=== PATIENT | female | born 1980 | race Two or more races ===

== ENCOUNTER 2024-07-25 13:33 | Emergency (ER) | payer MEDICARE, OTHER ==
[~2024-07-25] VITALS: Ht 165.1 cm; Wt 86.0 kg
[2024-07-25] MEDS: SODIUM CHLORIDE 0.9% 1,000 ML IV ONE (16:15)
--- NOTE | 2024-07-25 17:00 | ED.PDOC ---
GI ASSESSMENT HPI Comments 44 year old female presents to the ED with chief complaint of N/V. Patient reports that she has been experiencing chronic, intermittent nausea and vomiting for the past year with associated fatigue, becoming worse over time. Patient relays that she currently has no PCP due to recently moving to the area. Patient states she is currently on Aspirin. Patient denies any diarrhea, abdominal pain, dizziness, chest pain, SOB, or fever. Chief Complaint: Dizziness Time Seen by MD: 16:57 Reviewed Notes: Nurses Notes, Medications, Allergies Allergies: Coded Allergies: NO KNOWN ALLERGIES (Unverified , 07/25/24) Information Source: Patient Mode of Arrival: Ambulatory Timing: Other (a year) Duration: Intermittent Prehospital treatment: None Quality: None Vomitus: Watery Stool: Normal Severity: Moderate Recent: None Recent Hx of: None Pain Location: None Modifying Factors: Nothing Associated sign and symptoms: Nausea, Vomiting Past Medical History PAST MEDICAL HISTORY: CVA, High Lipids Surgical History: Hysterectomy [employer] History: No Pertinent [employer] History Family History Family History: Reviewed,noncontributory to illness Social History Smoker: Non-Smoker Alcohol: Denies ETOH Use Drugs: Denies Drug Use Lives In: Home Constitutional: reports: fatigue; denies: chills, diaphoresis, fever, malaise, sweats, weakness, others EENTM: denies: blurred vision, double vision, ear bleeding, ear discharge, ear drainage, ear pain, ear ringing, eye pain, eye redness, hearing loss, mouth pain, mouth swelling, nasal discharge, nose bleeding, nose congestion, nose pain, photophobia, tearing, throat pain, throat swelling, voice changes, others Respiratory: denies: cough, hemoptysis, orthopnea, SOB at rest, shortness of breath, SOB with excertion, stridor, wheezing, others Cardiovascular: denies: chest pain, dizzy spells, diaphoresis, Dyspnea on exertion, edema, irregular heart beat, left arm pain, lightheadedness, palpitations, PND, syncope, others Gastrointestinal: reports: nausea, vomiting; denies: abdomen distended, abdominal pain, blood streaked bowels, constipated, diarrhea, dysphagia, difficulty swallowing, hematemesis, melena, poor appetite, poor fluid intake, rectal bleeding, rectal pain, others Genitourinary: denies: abnormal vagina bleeding, burning, dyspareunia, dysuria, flank pain, frequency, hematuria, incontinence, pain, , vagina discharge, urgency, others Neurological: denies: dizziness, fainting, headache, left sided numbness, left sided weakness, numbness, paresthesia, pre-existing deficit, right sided numbness, right sided weakness, seizure, speech problems, tingling, tremors, weakness, others Musculoskeletal: denies: back pain, gout, joint pain, joint swelling, muscle pain, muscle stiffness, neck pain, others Integumetry: denies: bruises, change in color, change in hair/nails, dryness, laceration, lesions, lumps, rash, wounds, others Allergic/Immunocompromised: denies: Difficulty Healing, Frequent Infections, Hives, Itching, others Hematologic/Lymphatic: denies: anemia, blood clots, easy bleeding, easy bruising, swollen glands, others Endocrine: denies: excessive hunger, excessive sweating, excessive thirst, excessive urination, flushing, intolerance to cold, intolerance to heat, unexplained weight gain, unexplained weight loss, others Psychiatric: denies: anxiety, bipolar disorder, depression, hopeless, panic disorder, schizophrenia, sleepless, suicidal, others All Other Systems: Reviewed and Negative Physical Exam General Appearance: Mild Distress, Obese HEENT: Normal ENT Inspection, PERRL/EOMI Neck: Full Range of Motion, Non-Tender, Normal, Normal Inspection Respiratory: Chest Non-Tender, Lungs Clear, No Accessory Muscle Use, No Respiratory Distress, Normal Breath Sounds Cardiovascular: No Edema, No JVD, No Murmur, No Gallop, Normal Peripheral Pulses, Regular Rate/Rhythm Breast Exam: Deferred Gastrointestinal: No Organomegaly, Non Tender, No Pulsatile Mass, Normal Bowel Sounds, Soft Genitalia: Deferred Pelvic: Deferred Rectal: Deferred Extremities: Decreased range of motion, No calf tenderness, Normal capillary refill, Non-tender, No pedal edema, Other (Right hemiparesis from stroke) Musculoskeletal : Apperance: Normal Neurologic: Alert, sr. vendor management associate II-XII nml as Tested, Motor Weakness, Normal Affect, Normal Mood, No Sensory Deficits, Other (Right hemiparesis from stroke) Cerebellar Function: NOT DONE Reflexes: NOT DONE Skin: Dry, Normal Color, Warm Peripheral Pulses: 1+ carotid (R), 1+ carotid (L) Lymphatic: No Adenopathy Was a procedure done? Was a procedure done?: No GI differential Dx Differential Diagnosis: Appendicitis, Bowel Obstruction, Cholecystitis, Cons tipation, Diverticular disease, Esophagitis, Gastritis/PUD, Hernia, Inflammatory BD, Pancreatitis, UTI, Dehydration, Drug toxicity, Electrolyte Imbalance, Hypovolemia, Renal Failure, Ischemic Bowel, Mass, Anemia X-Ray, Labs, Meds, VS Vital Signs Date Time Temp Pulse Resp B/P (MAP) Pulse Ox O2 Delivery O2 Flow Rate FiO2 07/25/24 14:20 97.0 107 20 117/70 (86) 97 97.0 07/25/24 14:20 97.0 107 20 117/70 (86) 97 Lab Test 07/25/24 16:45 Range/Units White Blood Count 5.8 4.4-10.8 10^3/uL Red Blood Count 4.50 4.0-5.20 10^6/uL Hemoglobin 13.2 12.2-16.2 g/dL Hematocrit 39.9 36.0-46.0 % Mean Corpuscular Volume 88.7 80.0-100.0 fL Mean Corpuscular Hemoglobin 29.4 28.0-32.0 pg Mean Corpuscular Hemoglobin Concent 33.2 32.0-36.0 g/dL Red Cell Distribution Width 14.0 11.8-14.3 % Platelet Count 414 140-450 10^3/uL Mean Platelet Volume 7.1 6.9-10.8 fL Neutrophils (%) (Auto) 62.5 37.0-80.0 % Lymphocytes (%) (Auto) 26.3 10.0-50.0 % Monocytes (%) (Auto) 4.4 0.0-12.0 % Eosinophils (%) (Auto) 5.9 0.0-7.0 % Basophils (%) (Auto) 0.9 0.0-2.0 % Neutrophils # (Auto) 3.6 1.6-8.6 10 ^3/uL Lymphocytes # (Auto) 1.5 0.4-5.4 10 ^3/uL Monocytes # (Auto) 0.3 0-1.3 10 ^3/uL Eosinophils # (Auto) 0.3 0-0.8 10 ^3/uL Basophils # (Auto) 0.1 0-0.2 10 ^3/uL Nucleated Red Blood Cells 0.0 % Sodium Level 141 136-145 mmol/L Potassium Level 4.0 3.5-5.1 mmol/L Chloride Level 107 98-107 mmol/L Carbon Dioxide Level 30 20-31 mmol/L Anion Gap 4 L 5-15 Blood Urea Nitrogen 10 9-23 mg/dL Creatinine 0.79 0.550-1.02 mg/dL Glomerular Filtration Rate Calc 94 >90 mL/min BUN/Creatinine Ratio 12.7 10.0-20.0 Serum Glucose 98 74-106 mg/dL Calcium Level 10.1 8.7-10.4 mg/dL Magnesium Level 2.1 1.6-2.6 mg/dL Total Bilirubin 0.3 0.2-1.0 mg/dL Aspartate Amino Transferase (AST) < 8 L 13-40 U/L Alanine Aminotransferase (ALT) 13 7-40 U/L Alkaline Phosphatase 132 H 46-116 U/L Total Protein 7.1 5.7-8.2 g/dL Albumin 4.3 3.2-4.8 g/dL Lipase Pending Beta HCG, Quantitative 4.2 1.5-4.2 mIU/mL X-Ray, Labs, Meds, VS Comment 44-year-old female presents to the emergency department complaining of dizziness nausea vomiting on and off for one year patient with a history of a CVA with rig ht hemiparesis Patient has started the workup but nothing is done yetdr talamantes to follow up Time of 1ST Reevaluation: 17:57 Reevaluation 1ST: Unchanged Patient Education/Counseling: Diagnosis, Treatment Family Education/Counseling: No Family Present Assigned to Dr. DR TALAMANTES Change of Shift?: Yes Departure 1 Departure Time of Disposition: 18:18 Impression: Primary Impression: Nausea and vomiting in adult Additional Impression: Hemiplegia affecting right side in right-dominant patient as late effect of cerebrovascular disease Disposition: 30 STILL A PATIENT Condition: Fair Critical Care Note Critical Care Time?: No Stability Stability form required: No Heart Score Heart Score: Heart Score Response (Comments) Value History N/A 0 EKG N/A 0 Age <45 0 Risk Factors 1 or 2 risk factors 1 Troponin N/A 0 Total 1 I personally scribed for ROBIN PHELAN MD ([email or web address]) on 07/25/24 at 17:00. Electronically submitted by Mely Merino ([email or web address]). ROBIN PHELAN MD Jul 25, 2024 17:00
[2024-07-25 17:03] LABS: Basophils # (auto) 0.1 10 ^3/uL (0-0.2); Basophils % (auto) 0.9 % (0.0-2.0); Eosinophils # (auto) 0.3 10 ^3/uL (0-0.8); Eosinophils % (auto) 5.9 % (0.0-7.0); Hematocrit 39.9 % (36.0-46.0); Hemoglobin 13.2 g/dL (12.2-16.2); Lymphocytes # (auto) 1.5 10 ^3/uL (0.4-5.4); Lymphocytes % (auto) 26.3 % (10.0-50.0); Mean Corpuscular Hemoglobin 29.4 pg (28.0-32.0); Mean Corpuscular Hgb Conc. 33.2 g/dL (32.0-36.0); Mean Corpuscular Volume 88.7 fL (80.0-100.0); Monocytes # (auto) 0.3 10 ^3/uL (0-1.3); Monocytes % (auto) 4.4 % (0.0-12.0); Neutrophils # (auto) 3.6 10 ^3/uL (1.6-8.6); Neutrophils % (auto) 62.5 % (37.0-80.0); Platelet Count (auto) 414 10^3/uL (140-450); White Blood Cell 5.8 10^3/uL (4.4-10.8)
[2024-07-25 17:34] LABS: Alanine Aminotransferase 13 U/L (7-40); Albumin 4.3 g/dL (3.2-4.8); Anion Gap 4 (5-15); BUN/Creatinine Ratio 12.7 (10.0-20.0); Blood Urea Nitrogen 10 mg/dL (9-23); Calcium 10.1 mg/dL (8.7-10.4); Carbon Dioxide 30 mmol/L (20-31); Chloride 107 mmol/L (98-107); Glucose 98 mg/dL (74-106); Magnesium 2.1 mg/dL (1.6-2.6); Sodium 141 mmol/L (136-145)
[2024-07-25 17:35] LABS: Bilirubin, Total 0.3 mg/dL (0.2-1.0); Total Protein 7.1 g/dL (5.7-8.2)
[2024-07-25 17:38] LABS: Alkaline Phosphatase 132 U/L (46-116); Aspartate Aminotransferase < 8 U/L (13-40)
[2024-07-25 17:48] LABS: Lipase 35 U/L (12-53)
[2024-07-25 20:19] VITALS: TEMP 98.1
[2024-07-25 20:44] VITALS: PULSE 88; RESP 16; O2SAT 98
[2024-07-25] MEDS: MAALOX PLUS or MAALOX 30 ML PO ONE ×2 (20:48→21:05)
[2024-07-25] MEDS: PANTOPRAZOLE 40 MG TAB PO ONE ×2 (20:48→21:05)
[2024-07-25] MEDS: DONNATAL 5ml ORAL Elix (BELLADONNA ALK-PHENOBARB) PO ONE ×2 (20:48→21:05)
[2024-07-25] MEDS: SODIUM CHLORIDE 0.9% 1,000 ML IVB ONE (21:06)
[2024-07-25] MEDS: IOHEXOL 300 MG/ML 100ML BOTTLE IJ ONE (21:06)
[2024-07-25] MEDS: METOCLOPRAMIDE HCL 5MG/ml INJ 2ml VIAL IV ONE ×2 (21:06→21:10)
--- NOTE | 2024-07-25 21:39 | DVH ---
CHEST RADIOGRAPH Indication: Persistent abdominal pain with nausea and vomiting Technique: Frontal and lateral view of the chest was obtained Comparison: None FINDINGS: Lines and Tubes: None Lungs: Clear Pleura: No effusion. No pneumothorax. Cardiomediastinal contours: Unremarkable Bones: Unremarkable IMPRESSION: 1. No evidence of acute disease.
--- NOTE | 2024-07-25 22:03 | DVH ---
Exam: CT CT AB PEL WITH IV CON ONLY History: Abdominal pain with nausea and vomiting for the past year Comparison Study: None TECHNIQUE: A digital tree girdler image was obtained. During the uneventful, intravenous administration of c ontrast material, multislice data acquisition was obtained through the abdomen and pelvis. The data s et was subsequently reconstructed into axial images. Images reviewed on a wrist examination is an exa mination of axial and multiplanar reformations using a variety of window levels and settings. RADIATION DOSE: DLP 1219.76 mGy.cm; CTDI vol 21.57 mGy. Findings: Lungs: The lung bases are clear. Heart: The visualized heart is unremarkable. No cardiomegaly or pericardial effusion. Liver: Unremarkable. Gallbladder: Unremarkable. Spleen: Unremarkable Pancreas: Unremarkable Adrenals: Unremarkable Kidneys: Unremarkable GI tract: Mild to moderate wall thickening of the duodenum and jejunum. : Unremarkable. Vasculature: Unremarkable Lymphadenopathy: Absent Peritoneum: No ascites Musculoskeletal: Unremarkable Soft tissues: Unremarkable Impression: 1. No acute abdominopelvic abnormalities. 2. Mild to moderate wall thickening of the duodenum and jejunum. Correlate for enteritis.
[2024-07-25 23:35] VITALS: BP 142/93; PULSE 92; RESP 16; O2SAT 98
[2024-07-25] MEDS ORDERED: ZOFR4T PO (23:37)
--- NOTE | 2024-07-26 12:51 | ECG ---
[facility] Test Date: 2024-07-25 Test Time: 14:32:41 Pat Name: TESFAYE RAMIREZ Department: ER Room: Gender: F Mortgage Loan Officer: ER : 1980 Requested By: ROBIN PHELAN Order Number: [id number] Reading MD: Ole Nguyen Measurements Intervals [place] Rate: 110 P: 65 AL: 156 QRS: 79 QRSD: 94 T: 38 QT: 357 QTc: 484 Interpretive Statements Sinus tachycardia Probable left atrial enlargement Low voltage, precordial leads Baseline wander in lead(s) V1,V2 Electronically Signed On 07-26-2024 13:07:08 PST by Ole Nguyen Please click the below link to view image of tracing.
== END 2024-07-26 00:39 | disposition home or self-care (01) ==
LOC: ER 13:33
DX: I69.951 Hemiplegia and hemiparesis following unspecified cerebrovascular disease affecting right dominant side (principal); R10.2 Pelvic and perineal pain; R42 Dizziness and giddiness; Z79.82 Long term (current) use of aspirin; Z90.710 Acquired absence of both cervix and uterus; Z79.899 Other long term (current) drug therapy
CPT/HCPCS: 36415; 71046; 74177; 80053; 83690; 83735; 84702; 85025; 93005; 96361; 96374; 99285; J2765; J7030; Q9967